=== PATIENT | male | born 1935 | race Caucasian/White ===

== ENCOUNTER 2018-08-21 10:49 | Emergency (ER) | payer MEDICARE, OTHER ==
--- NOTE | 2018-08-21 10:53 | EDM.PDOC ---
ED HPI GENERAL MEDICAL PROBLEM - General Chief Complaint: Respiratory Problem Stated Complaint: CONGESTON Time Seen by Provider: 08/21/18 10:50 Source of Information: Reports: Patient History Limitations: Reports: No Limitations - History of Present Illness INITIAL COMMENTS - FREE TEXT/NARRATIVE: HISTORY AND PHYSICAL: History of present illness: Patient is an 83-year-old male who presents to the emergency room today with complaints of productive cough and nasal drainage 2 weeks. He states he initially thought he had a "cold" but is concerned that it is not improving. Over the past 2 days he has had a sensation of tightness across his chest. He states nothing makes the pain better or worse but describes it as "noticeable". Patient does have a history of heart disease with CT and stents. Patient denies any fever, chills, headache, change in vision, syncope or near syncope. Denies any back pain or shortness of breath. Denies any abdominal pain , nausea, vomiting, diarrhea, constipation or dysuria. Patient has been eating and drinking appropriately. Review of systems: As per history of present illness and below otherwise all systems reviewed and negative. Past medical history: As per history of present illness and as reviewed below otherwise noncontributory. Surgical history: As per history of present illness and as reviewed below otherwise noncontributory. Social history: See social history for further information Family history: As per history of present illness and as reviewed below otherwise noncontributory. Physical exam: General: Well-developed and well-nourished 83-year-old male. Alert and oriented. Nontoxic appearing and in no acute distress. HEENT: Atraumatic, normocephalic, pupils equal and reactive bilaterally, negative for conjunctival pallor or scleral icterus, mucous membranes moist, TMs normal bilaterally, trachea midline. No drooling or trismus noted. No meningeal signs. No hot potato voice noted. Lungs: Clear to auscultation, breath sounds equal bilaterally, chest nontender. Heart: S1S2, regular rate and rhythm with obvious murmur Abdomen: Soft, nondistended, nontender. Pelvis: Stable nontender. Skin: Intact, warm, dry. No lesions or rashes noted. Extremities: Atraumatic, moves all extremities per self without difficulty or deficits. Neurovascular unremarkable. Neuro: Awake, alert, oriented. Cranial nerves II through XII unremarkable. Cerebellum unremarkable. Motor and sensory unremarkable throughout. Exam nonfocal. Notes: Lab work is unremarkable. Chest x-ray shows no acute findings. EKG was reviewed by myself and Dr Quinonez. I did discuss diagnostics with patient. Due to his past medical history I did offer him admission for observation. He declines. He is aware of the risks of being discharged without further observation/ evaluation. Due to the length of symptoms and history I am going to treat him with antibiotics. Supportive care measures were reviewed and discussed. Voices understanding and is agreeable to plan of care. Denies any further questions or concerns at this time. Diagnostics: CXR, CBC, CMP, troponin, EKG Therapeutics: Aspirin, saline lock Prescription: Zpak Impression: Bronchitis Chest pain, unspecified Plan: 1. As we discussed: if your chest pain should return or new symptoms develop- please return to the emergency room. 2. Take your medications as prescribed. 3. Follow-up with your primary care provider as we discussed. Return to the ED as needed and as discussed. Definitive disposition and diagnosis as appropriate pending reevaluation and review of above. Headache Pain Score (Numeric/FACES): 3 - Related Data Allergies Allergy/AdvReac Type Severity Reaction Status Date / Time No Known Allergies Allergy Verified 08/21/18 11:05 Home Meds: Home Meds Acetaminophen [Tylenol] 650 mg PO DAILY 08/21/18 [History] Amoxicillin/Clavulanate K [Augmentin 500-125 MG] 1 tab PO BID 7 Days #14 tablet 08/21/18 [Rx] Baclofen 10 mg PO TID PRN 08/21/18 [History] Clopidogrel [Plavix] 75 mg PO DAILY 08/21/18 [History] Latanoprost/Pf [Latanoprost 0.005% Eye Drop] 1 drop EYEBOTH DAILY 08/21/18 [ History] Methotrexate Sodium [Methotrexate] 2.5 mg PO WEEKLY 08/21/18 [History] Metoprolol Tartrate 12.5 mg PO BID 08/21/18 [History] Omeprazole 20 mg PO DAILY 08/21/18 [History] atorvaSTATin [Lipitor] 20 mg PO DAILY 08/21/18 [History] metFORMIN [Glucophage] 1,000 mg PO BID 08/21/18 [History] ED ROS GENERAL - Review of Systems Review Of Systems: ROS reveals no pertinent complaints other than HPI. ED EXAM, GENERAL - Physical Exam Exam: See Below (See dictation) Course - Vital Signs Last Recorded V/S: Last Vital Signs Temp 97.2 F 08/21/18 11:06 Pulse 85 08/21/18 12:56 Resp 13 08/21/18 12:56 BP 116/68 08/21/18 12:56 Pulse Ox 94 L 08/21/18 12:56 - Orders/Labs/Meds Orders: Active Orders 24 hr Category Date Time Status EKG Documentation Completion [RC] STAT Care 08/21/18 11:21 Active RT Aerosol Therapy [RC] ASDIRECTED Care 08/21/18 12:08 Active Saline Lock Insert [OM.PC] Stat Oth 08/21/18 11:21 Ordered Labs: Laboratory Tests 08/21/18 08/21/18 Range/Units 11:45 11:45 WBC 12.06 H (4.0-11.0) K/uL RBC 4.06 L (4.50-5.90) M/uL Hgb 13.1 (13.0-17.0) g/dL Hct 39.8 (38.0-50.0) % MCV 98.0 (80.0-98.0) fL MCH 32.3 H (27.0-32.0) pg MCHC 32.9 (31.0-37.0) g/dL RDW Std Deviation 55.9 (28.0-62.0) fl RDW Coeff of Neil 16 H (11.0-15.0) % Plt Count 173 (150-400) K/uL MPV 10.10 (7.40-12.00) fL Neut % (Auto) 76.5 (48.0-80.0) % Lymph % (Auto) 12.1 L (16.0-40.0) % Meade % (Auto) 6.8 (0.0-15.0) % Eos % (Auto) 4.4 (0.0-7.0) % Baso % (Auto) 0.2 (0.0-1.5) % Neut # (Auto) 9.2 H (1.4-5.7) K/uL Lymph # (Auto) 1.5 (0.6-2.4) K/uL Meade # (Auto) 0.8 (0.0-0.8) K/uL Eos # (Auto) 0.5 (0.0-0.7) K/uL Baso # (Auto) 0.0 (0.0-0.1) K/uL Nucleated RBC % 0.0 /100WBC Nucleated RBCs # 0 K/uL Sodium 138 (136-148) mmol/L Potassium 4.0 (3.5-5.1) mmol/L Chloride 105 (98-107) mmol/L Carbon Dioxide 21.6 (21.0-32.0) mmol/L BUN 18 (7.0-18.0) mg/dL Creatinine 1.4 H (0.8-1.3) mg/dL Est Cr Clr Drug Dosing 30.33 mL/min Estimated GFR (MDRD) 48.3 ml/min Glucose 167 H (74-106) mg/dL Calcium 9.0 (8.5-10.1) mg/dL Total Bilirubin 1.4 H (0.2-1.0) mg/dL AST 23 (15-37) IU/L ALT 24 (14-63) IU/L Alkaline Phosphatase 108 (46-116) U/L Troponin I < 0.050 (0.000-0.056) ng/mL Total Protein 7.1 (6.4-8.2) g/dL Albumin 3.6 (3.4-5.0) g/dL Globulin 3.5 (2.6-4.0) g/dL Albumin/Globulin Ratio 1.0 (0.9-1.6) Meds: Medications Discontinued Medications Generic Name Dose Route Start Last Admin Trade Name Freq PRN Reason Stop Dose Admin Albuterol/Ipratropium 3 ml 08/21/18 12:08 08/21/18 12:15 Duoneb 3.0-0.5 Mg/3 Ml NEB 08/21/18 12:09 3 ml ONETIME ONE Administration Aspirin 324 mg 08/21/18 11:21 08/21/18 11:49 Aspirin PO 08/21/18 11:22 324 mg ONETIME ONE Administration Sodium Chloride 10 ml 08/21/18 11:21 08/21/18 11:50 Saline Flush FLUSH 10 ml ASDIRECTED PRN Administration Keep Vein Open Sodium Chloride 2.5 ml 08/21/18 11:21 08/21/18 11:50 Saline Flush FLUSH 2.5 ml ASDIRECTED PRN Administration Keep Vein Open Departure - Departure Time of Disposition: 12:43 Disposition: Home, Self-Care 01 Clinical Impression: Bronchitis Chest pain, unspecified Qualifiers: Chest pain type: unspecified Qualified Code(s): R07.9 - Chest pain, unspecified - Discharge Information Prescriptions: Amoxicillin/Clavulanate K [Augmentin 500-125 MG] 1 tab PO BID 7 Days #14 tablet Instructions: Acute Bronchitis, Adult, [id number], Nonspecific Chest Pain, [id number] Referrals: Lyly Graham DO [Primary Care Provider] - Forms: ED Department Discharge Additional Instructions: The following information is given to patients seen in the emergency department who are being discharged to home. This information is to outline your options for follow-up care. We provide all patients seen in our emergency department with a follow-up referral. The need for follow-up, as well as the timing and circumstances, are variable depending upon the specifics of your emergency department visit. If you don't have a primary care physician on staff, we will provide you with a referral. We always advise you to contact your personal physician following an emergency department visit to inform them of the circumstance of the visit and for follow-up with them and/or the need for any referrals to a consulting specialist. The emergency department will also refer you to a specialist when appropriate. This referral assures that you have the opportunity for follow-up care with a specialist. All of these measure are taken in an effort to provide you with optimal care, which includes your follow-up. Under all circumstances we always encourage you to contact your private physician who remains a resource for coordinating your care. When calling for follow-up care, please make the office aware that this follow-up is from your recent emergency room visit. If for any reason you are refused follow-up, please contact the [facility] Emergency Department at and asked to speak to the emergency department charge nurse. [facility] [address] [place] [id number] [address] [place] [address] 1. As we discussed: if your chest pain should return or new symptoms develop- please return to the emergency room. 2. Take your medications as prescribed. 3. Follow-up with your primary care provider as we discussed. Return to the ED as needed and as discussed. - My Orders Last 24 Hours: My Active Orders 08/21/18 11:21 EKG Documentation Completion [RC] STAT Saline Lock Insert [OM.PC] Stat 08/21/18 12:08 RT Aerosol Therapy [RC] ASDIRECTED - Assessment/Plan Last 24 Hours: My Active Orders 08/21/18 11:21 EKG Documentation Completion [RC] STAT Saline Lock Insert [OM.PC] Stat 08/21/18 12:08 RT Aerosol Therapy [RC] ASDIRECTED
[2018-08-21] MEDS ORDERED: Sodium Chloride 0.9% 10 ML Syringe FLUSH PRN (11:21)
[2018-08-21] MEDS ORDERED: Aspirin 81 MG Tab.Chew PO ONE (11:21)
[2018-08-21] MEDS ORDERED: Sodium Chloride 0.9% 2.5 ML Syringe FLUSH PRN (11:21)
--- NOTE | 2018-08-21 11:42 | CR ---
EXAMINATION: Two-view chest (PA and Lateral views). HISTORY: Shortness of breath. FINDINGS: The trachea is midline. The cardiomediastinal silhouette is within normal limits. No pulmonary infiltrates, effusions or pneumothorax. Median sternotomy wires are noted. Mild basilar atelectasis/scarring. Osseous structures appear osteopenic. IMPRESSION: No acute cardiopulmonary process.
[2018-08-21] MEDS ORDERED: Albuterol/Ipratropium 3.0-0.5 MG/3 ML Neb Soln NEB ONE (12:08)
[2018-08-21 12:29] LABS: CHLORIDE,CL 105 mmol/L (98-107); SODIUM,NA 138 mmol/L (136-148)
== END 2018-08-21 12:58 | disposition home or self-care (01) ==
LOC: MW.ED 10:49
DX: J40 Bronchitis, not specified as acute or chronic (principal); R07.9 Chest pain, unspecified; I25.2 Old myocardial infarction; Z95.5 Presence of coronary angioplasty implant and graft; Z79.899 Other long term (current) drug therapy; Z79.84 Long term (current) use of oral hypoglycemic drugs
CPT/HCPCS: 36415; 71046; 80053; 84484; 85025; 93005; 94640; 99283; A9270; J7620-GY

== ENCOUNTER 2021-03-26 16:24 | Emergency (ER) | payer MEDICARE, OTHER ==
[2021-03-26] MEDS ORDERED: Sodium Chloride 0.9% 2.5 ML Syringe FLUSH PRN (19:55)
[2021-03-26] MEDS ORDERED: Sodium Chloride 0.9% 10 ML Syringe FLUSH PRN (19:55)
[2021-03-26] MEDS ORDERED: Lactated Ringers 1,000 ML IV ONE (19:55)
[2021-03-26 20:31] LABS: CORONAVIRUS COVID-19 NAA POSITIVE (NEGATIVE); INFLUENZA A NAA NEGATIVE (NEGATIVE); INFLUENZA B NAA NEGATIVE (NEGATIVE)
[2021-03-26 21:02] LABS: BLOOD UREA NITROGEN,BUN 26 mg/dL (7.0-18.0); CHLORIDE,CL 104 mmol/L (98-107); GLUCOSE RANDOM 190 mg/dL (74-106); POTASSIUM,K 4.4 mmol/L (3.5-5.1); SODIUM,NA 140 mmol/L (136-148)
== END 2021-03-26 23:03 | disposition home or self-care (01) ==
LOC: MW.ED 16:24
DX: U07.1 COVID-19 (principal); E86.0 Dehydration; R53.1 Weakness; I12.9 Hypertensive chronic kidney disease with stage 1 through stage 4 chronic kidney disease, or unspecified chronic kidney disease; E11.22 Type 2 diabetes mellitus with diabetic chronic kidney disease; N18.9 Chronic kidney disease, unspecified; N17.9 Acute kidney failure, unspecified; I25.2 Old myocardial infarction; I45.10 Unspecified right bundle-branch block; R00.0 Tachycardia, unspecified; Z86.73 Personal history of transient ischemic attack (TIA), and cerebral infarction without residual deficits; Z88.0 Allergy status to penicillin; Z79.02 Long term (current) use of antithrombotics/antiplatelets; Z79.84 Long term (current) use of oral hypoglycemic drugs; Z79.899 Other long term (current) drug therapy
CPT/HCPCS: 0240U; 36415; 71045; 80053; 81001; 83605; 83735; 83880; 84100; 84145; 84484; 85025; 85610; 93005; 99285; J7120

== ENCOUNTER 2021-06-21 14:45 | Emergency (ER) | payer MEDICARE, OTHER ==
[2021-06-21] MEDS ORDERED: Sodium Chloride 0.9% 10 ML Syringe FLUSH PRN (15:19)
[2021-06-21] MEDS ORDERED: Sodium Chloride 0.9% 2.5 ML Syringe FLUSH PRN (15:19)
[2021-06-21] MEDS ORDERED: Sodium Chloride 0.9% 1,000 ML IV ONE (15:23)
[2021-06-21 16:29] LABS: CARBON DIOXIDE,CO2 23.9 mmol/L (21.0-32.0); POTASSIUM,K 5.4 mmol/L (3.5-5.1)
== END 2021-06-21 17:39 | disposition home or self-care (01) ==
LOC: MW.ED 14:45
DX: R00.1 Bradycardia, unspecified (principal); E86.0 Dehydration; I10 Essential (primary) hypertension; I25.2 Old myocardial infarction; E11.9 Type 2 diabetes mellitus without complications; Z86.73 Personal history of transient ischemic attack (TIA), and cerebral infarction without residual deficits; Z88.0 Allergy status to penicillin; Z79.02 Long term (current) use of antithrombotics/antiplatelets; Z20.822 Contact with and (suspected) exposure to COVID-19; Z79.84 Long term (current) use of oral hypoglycemic drugs
CPT/HCPCS: 36415; 71045; 80053; 83735; 84484; 85025; 93005; 99284; J3490; J7030; U0002